=== PATIENT | female | born 1955 | race Caucasian/White ===

== ENCOUNTER → 2018-08-23 | Outpatient (CLI) | payer OTHER, MEDICARE | LOC: BMCIMAGING 08:01 | PROVIDERS: ATTEND Physician Assistant | DX: K59.00 Constipation, unspecified (principal); R14.0 Abdominal distension (gaseous) ==

== ENCOUNTER → 2018-08-24 | Outpatient (CLI) | payer OTHER, MEDICARE | LOC: BMCIMAGING 12:55 | PROVIDERS: ATTEND Physician Assistant | DX: R10.13 Epigastric pain (principal); R14.0 Abdominal distension (gaseous) ==